=== PATIENT | female | born 1960 | race African-American/Black ===

== ENCOUNTER 2022-09-01 11:45 | Emergency (ER) | payer OTHER ==
[2022-09-01] MEDS ORDERED: ASPIRIN 325 MG TAB ONE (12:16)
[2022-09-01] MEDS ORDERED: ACETAMINOPHEN 500 MG TAB ONE (12:16)
[2022-09-01 12:28] LABS: Absolute Lymphocytes (CBC) 2.8 K/uL (0.7-4.9); Hematocrit 37.5 % (36.0-45.0); Lymphocytes % 29.4 % (15.3-44.8); MCV 81.2 fL (80-100); MPV 7.6 fL (7.6-11.3); RBC Red Blood Cell Count 4.62 M/uL (3.86-4.86)
[2022-09-01 12:40] LABS: Potassium 3.4 mmol/L (3.5-5.1)
[2022-09-01 12:42] LABS: Troponin High Sensitivity 6.1 pg/mL (<58.9)
--- NOTE | 2022-09-01 13:03 | RAD REPORT ---
EXAM DESCRIPTION: Marito Single View09/01/2022 12:53 pm CLINICAL HISTORY: Chest pain COMPARISON: 2015 FINDINGS: The lungs appear clear of acute infiltrate. The heart is normal size IMPRESSION: No acute abnormalities displayed
--- NOTE | 2022-09-01 13:23 | EDPHYS ---
Physician Documentation [facility] Name: Dianna Yang Age: 61 yrs Sex: Female : 1960 Arrival Date: 09/01/2022 Time: 11:47 Bed 7 Private MD: ED Physician Sabas Costello HPI: 09/01 12:20 This 61 yrs old Black Female presents to ER via Ambulatory with complaints of Chest jr11 Pain. 12:20 Patient is a 61-year-old with history of hypertension diabetes, she is here because she jr11 started experiencing chest pain approximately 3 hours a little bit over 3 hours that is an ache in nature, worse with coughing and worse with palpation of her sternum. Patient has been recovering from an upper respiratory illness over the last week, she is finishing her steroids and actually finished her steroids yesterday. Denies any fevers chills currently. Denies exertional pain, no tearing pain, does not radiate to the back, does not cross the diaphragm. No diaphoresis, no vomiting. No syncope or near-syncope. . Historical: - Allergies: 11:55 Codeine; aa5 11:55 Morphine; aa5 - PMHx: 11:55 Hypertension; Diabetes mellitus; Gout; aa5 - Immunization history:: Adult Immunizations unknown. - Social history:: Smoking status: Patient denies any tobacco usage or history of. ROS: 12:20 All other systems are negative. jr11 Exam: 12:20 Constitutional: This is a well developed, well nourished patient who is awake, alert, jr11 and in no acute distress. Head/Face: Normocephalic, atraumatic. ENT: Nares patent. No nasal discharge, no septal abnormalities noted. Oropharynx with no redness, swelling, or masses, exudates, or evidence of obstruction, uvula midline. Mucous membranes moist. Neck: Trachea midline, no thyromegaly or masses palpated, and no cervical lymphadenopathy. Supple, full range of motion without nuchal rigidity, or vertebral point tenderness. No Meningismus. Chest/axilla: Normal chest wall appearance and motion. Nontender with no deformity. No lesions are appreciated. Cardiovascular: Regular rate and rhythm with a normal S1 and S2. No gallops, murmurs, or rubs. Normal PMI, no JVD. No pulse deficits. Respiratory: Lungs have equal breath sounds bilaterally, clear to auscultation and percussion. No rales, rhonchi or wheezes noted. No increased work of breathing, no retractions or nasal flaring. Abdomen/GI: Soft, non-tender, with normal bowel sounds. No distension or tympany. No guarding or rebound. No evidence of tenderness throughout. Skin: Warm, dry with normal turgor. Normal color with no rashes, no lesions, and no evidence of cellulitis. MS/ Extremity: Pulses equal, no cyanosis. Neurovascular intact. Full, normal range of motion. Vital Signs: 11:54 BP 117 / 78; Pulse 90; Resp 18 S; Temp 97.0(TE); Pulse Ox 99% on R/A; Weight 95.25 kg aa5 (R); Height 5 ft. 8 in. (172.72 cm) (R); 12:20 BP 123 / 84; Pulse 88; Resp 14; Pulse Ox 97% ; Pain 8/10; ld1 11:54 Body Mass Index 31.93 (95.25 kg, 172.72 cm) aa5 Procedures: 12:20 Performed EKG interpreted by me shows normal sinus rhythm, prolonged QRS at 142, left jr11 axis deviation, left bundle branch morphology without any acute ST changes.. MDM: 12:06 Patient medically screened. jr11 12:20 Differential diagnosis: abnormal EKG, anxiety, chest wall pain. HEART Score: History: jr11 Slightly Suspicious (0), ECG: Non specific repolarization disturbance / LBTB / PM (1), Age: > 45 and < 65 years (1), Risk Factors: > or = 3 Risk factors for atherosclerotic disease (2), [Hypertension] [DM] [Obesity]. Data reviewed: vital signs, nurses notes. Independent interpretation of the following test(s) in the Emergency Department EKG: See my EKG interpretation above clinical therapist: rate is 86 beats/min, Rhythm is normal sinus rhythm. ED course: Patient is a 61-year-old with chest pain, worse with movement, pleuritic in nature, no shortness of breath, no concern for PE. Patient with likely musculoskeletal skeletal pain given the pains been greater than 8 hours, will send 1 set of high-sensitivity troponin to rule out ACS.. 13:21 Consideration of Admission/Observation Escalation of care including jr11 admission/observation considered. HEART <3, pain non cardiac at this point given symptoms, will refer to cards given LBBB. 09/01 12:07 Order name: Basic Metabolic Panel; Complete Time: 12:44 09/01 12:07 Order name: CBC with Diff; Complete Time: 12:44 09/01 12:07 Order name: Troponin HS; Complete Time: 12:44 09/01 12:07 Order name: XRAY Chest (1 view); Complete Time: 13:14 09/01 12:07 Order name: EKG; Complete Time: 12:08 09/01 12:07 Order name: Cardiac monitoring; Complete Time: 12:08 09/01 12:07 Order name: EKG - Nurse/Tech; Complete Time: 12:08 09/01 12:07 Order name: IV Saline Lock; Complete Time: 12:16 09/01 12:07 Order name: Labs collected and sent; Complete Time: 12:16 09/01 12:07 Order name: O2 Per Protocol; Complete Time: 12:08 09/01 12:07 Order name: O2 Sat Monitoring; Complete Time: 12:08 ld Administered Medications: 12:15 Drug: Tylenol 1000 mg Route: PO; ld1 12:15 Drug: Aspirin 325 mg Route: PO; ld1 Disposition Summary: 09/01/22 13:23 Discharge Ordered Location: Home jr11 Condition: Stable jr11 Diagnosis - Chest pain, unspecified jr11 Followup: jr11 - With: Ino Fraire MD - When: 1 - 2 days - Reason: Re-evaluation by your physician Discharge Instructions: - Discharge Summary Sheet jr11 - Nonspecific Chest Pain, Adult jr11 Forms: - Medication Reconciliation Form jr11 - Thank You Letter jr11 - Antibiotic Education jr11 - Prescription Opioid Use jr11 Prescriptions: - ibuprofen 200 mg Oral capsule - take 2 capsule by ORAL route every 6 hours; 20 capsule; Refills: 0, Product jr11 Selection Permitted Signatures: Dispatcher [employer] Amy Rg RN RN aa5 Madelin Garrido RN RN ld1 Sabas Costello MD MD jr11
--- NOTE | 2022-09-01 13:23 | ER ---
Nurse's Notes [facility] Name: Dianna Yang Age: 61 yrs Sex: Female : 1960 Arrival Date: 09/01/2022 Time: 11:47 Bed 7 Private MD: Diagnosis: Chest pain, unspecified Presentation: 09/01 11:54 Chief complaint: Patient states: mid-sternal chest pain that began 1 hr [employer]. Pt states aa5 "I am just getting over tonsillitis", reports finished taking medrol pack yesterday. Coronavirus screen: sore throat. Ebola Screen: Patient denies travel to an Ebola-affected area in the 21 days before illness onset. Initial Sepsis Screen: Does the patient meet any 2 criteria? No. Patient's initial sepsis screen is negative. Does the patient have a suspected source of infection? No. Patient's initial sepsis screen is negative. Risk Assessment: Do you want to hurt yourself or someone else? Patient reports no desire to harm self or others. Onset of symptoms was September 01, 2022. 11:54 Method Of Arrival: Ambulatory aa5 11:54 Acuity: CJ 3 aa5 Historical: - Allergies: 11:55 Codeine; aa5 11:55 Morphine; aa5 - PMHx: 11:55 Hypertension; Diabetes mellitus; Gout; aa5 - Immunization history:: Adult Immunizations unknown. - Social history:: Smoking status: Patient denies any tobacco usage or history of. Screenin:20 [facility] ED Fall Risk Assessment (Adult) History of falling in the last 3 months, ld1 including since admission No falls in past 3 months (0 pts). Abuse screen: Denies threats or abuse. Denies injuries from another. Nutritional screening: No deficits noted. Tuberculosis screening: No symptoms or risk factors identified. Assessment: 12:20 Reassessment:. General: Appears in no apparent distress. comfortable, Behavior is calm, ld1 cooperative, appropriate for age. Pain: Complains of pain in chest Pain does not radiate. Pain currently is 9 out of 10 on a pain scale. Quality of pain is described as sharp, shooting, throbbing, Pain began suddenly, Is continuous. Neuro: Level of Consciousness is awake, alert, obeys commands, Oriented to person, place, time, situation. Cardiovascular: Capillary refill < 3 seconds Patient's skin is warm and dry. Rhythm is sinus rhythm. Respiratory: Airway is patent Respiratory effort is even, unlabored. GI: Abdomen is round non-distended. : No signs and/or symptoms were reported regarding the genitourinary system. EENT: No signs and/or symptoms were reported regarding the EENT system. Derm: No signs and/or symptoms reported regarding the dermatologic system. Vital Signs: 11:54 BP 117 / 78; Pulse 90; Resp 18 S; Temp 97.0(TE); Pulse Ox 99% on R/A; Weight 95.25 kg aa5 (R); Height 5 ft. 8 in. (172.72 cm) (R); 12:20 BP 123 / 84; Pulse 88; Resp 14; Pulse Ox 97% ; Pain 8/10; ld1 11:54 Body Mass Index 31.93 (95.25 kg, 172.72 cm) aa5 ED Course: 11:47 Patient arrived in ED. as 11:53 Sabas Costello MD is Attending Physician. jr11 11:54 Arm band placed on. aa5 11:55 Triage completed. aa5 12:07 Madelin Garrido, RN is Primary Nurse. ld1 12:15 Initial lab(s) drawn, by me, sent to lab. Inserted saline lock: 20 gauge in right vg1 antecubital area, using aseptic technique. Blood collected. 12:20 Patient has correct armband on for positive identification. Placed in gown. Bed in low ld1 position. Call light in reach. Side rails up X2. traffic monitor specialist on. Pulse ox on. NIBP on. Door closed. Noise minimized. Warm blanket given. 12:20 No provider procedures requiring assistance completed. Inserted. Patient maintains SpO2 ld1 saturation greater than 95% on room air. 12:54 XRAY Chest (1 view) In Process Unspecified. EDMS 13:23 Ino Fraire MD is Referral Physician. jr11 13:38 IV discontinued, intact, bleeding controlled, No redness/swelling at site. ld1 Administered Medications: 12:15 Drug: Tylenol 1000 mg Route: PO; ld1 12:15 Drug: Aspirin 325 mg Route: PO; ld1 Medication: 12:20 VIS not applicable for this client. ld1 Outcome: 13:23 Discharge ordered by MD. jr11 13:38 Discharged to home ambulatory. ld1 13:38 Condition: stable 13:38 Discharge instructions given to patient, Instructed on discharge instructions, follow up and referral plans. Demonstrated understanding of instructions, follow-up care, medications, Prescriptions given X 1. 13:39 Patient left the ED. ld1 Signatures: Dispatcher [employer] EDYamilet Beasley Audri, RN RN aa5 Joceline Acosta RN RN 1 Madelin Garrido RN RN ld1 Sabas Costello MD MD jr11
[2022-09-01 13:43] VITALS: TEMP 97
[2022-09-01 13:44] VITALS: BP 123/84; O2SAT 97
--- NOTE | 2022-09-02 13:18 | EKG ---
Test Date: 2022-09-01 Test Time: 12:06:00 [employer] Worker: ALISHA MEASUREMENT RESULTS: Intervals: Rate: 90 TX: 178 QRSD: 142 QT: 388 QTc: 474 [place]: P: 30 TX: 178 QRS: -14 T: 144 INTERPRETIVE STATEMENTS: Normal sinus rhythm Left bundle branch block Abnormal ECG Compared to ECG 05/16/2016 12:34:44 Left bundle-branch block now present Electronically Signed On 09-02-22 13:15:17 TIE WORKER by Ino Fraire
== END 2022-09-01 13:39 | disposition home or self-care (01) ==
LOC: ER 11:45
DX: R07.9 Chest pain, unspecified (principal); I44.7 Left bundle-branch block, unspecified; I10 Essential (primary) hypertension; E11.9 Type 2 diabetes mellitus without complications; Z88.6 Allergy status to analgesic agent
CPT/HCPCS: 36415; 71045; 80048; 84484; 85025; 93005